=== PATIENT | female | born 2005 | race Two or more races ===

== ENCOUNTER 2023-08-03 23:21 | Emergency (ER) | payer SELFPAY ==
[2023-08-04 00:42] LABS: CORONAVIRUS COVID-19 NAA NEGATIVE (NEGATIVE); INFLUENZA A NAA NEGATIVE (NEGATIVE)
[2023-08-04] MEDS ORDERED: Ibuprofen Susp 100 MG/5 ML 5 ML UD Cup PO ONE (00:43)
[2023-08-04] MEDS ORDERED: Sodium Chloride 0.9% 10 ML Syringe FLUSH PRN (00:43)
[2023-08-04] MEDS ORDERED: Acetaminophen 325 MG/10.15 ML ML PO ONE (00:43)
[2023-08-04 01:16] LABS: BASOPHILS PERCENT AUTO 0.2 % (0.0-1.0); EOSINOPHILS PERCENT AUTO 0.1 % (0.0-6.0); HEMATOCRIT 37.2 % (37.0-47.0); HEMOGLOBIN 12.3 gm/dl (12.0-16.0); IMMATURE GRAN ABSOLUTE AUTO 0.12 K/mm3 (0.00-0.05); IMMATURE GRAN PERCENT AUTO 0.5 % (0.0-0.4); LYMPHOCYTES ABSOLUTE AUTO 1.8 K/mm3 (1.0-4.8); MEAN CORPUSCULAR HEMOGLOBIN 27.2 pg (28.0-32.0); MEAN CORPUSCULAR HGB CONC 33.1 g/dl (32.0-36.0); MEAN CORPUSCULAR VOLUME 82.1 fl (83.0-99.0); MEAN PLATELET VOLUME 9.6 fl (9.4-12.3); MONOCYTES ABSOLUTE AUTO 1.8 K/mm3 (0.0-0.8); MONOCYTES PERCENT AUTO 8.1 % (0.0-8.0); NEUTROPHILS ABSOLUTE AUTO 18.3 K/mm3 (1.8-7.7); NEUTROPHILS PERCENT AUTO 83.1 % (41.0-71.0); PLATELET COUNT,PLT 261 K/mm3 (150-400); RED BLOOD CELL COUNT 4.53 M/mm3 (4.10-5.30); WHITE BLOOD CELL COUNT,WBC 22.07 K/mm3 (3.9-11.3)
[2023-08-04 01:38] LABS: A/G RATIO 0.8 (1-2); ALBUMIN 3.6 g/dl (3.4-5.0); ANION GAP 16.5 (5-15); BILIRUBIN TOTAL 0.7 mg/dL (0.2-1.0); BUN/CREATININE RATIO 11.4 (14-18); CALCIUM 9.2 mg/dL (8.5-10.1); CREATININE 0.7 mg/dL (0.55-1.02); EST CRCL DRUG DOSING (CG) 124.67 mL/min; POTASSIUM,K 3.5 mEq/L (3.5-5.1); PROTEIN TOTAL,TP 7.9 g/dl (6.4-8.2)
[2023-08-04 01:41] LABS: SLIDE REVIEW ABNORMAL SMEAR
[2023-08-04] MEDS ORDERED: Clindamycin Phosphate in D5W 900 MG in Premix Bag 1 BAG IV ONE ×2 (02:02)
[2023-08-04] MEDS ORDERED: Dexamethasone 10 MG/ML SDV IVPUSH ONE (02:03)
[2023-08-04 02:08] LABS: C-REACTIVE PROTEIN 22.4 mg/dL (<1.0)
== END 2023-08-04 02:54 | disposition home or self-care (01) ==
LOC: JD.ED 23:21
DX: J36 Peritonsillar abscess (principal); Z20.822 Contact with and (suspected) exposure to COVID-19
CPT/HCPCS: 0240U; 36415; 80053; 85025; 86140; 86308; 87651; 96365; 96375; 99284; A9270; J1100; J3490

== ENCOUNTER 2023-08-15 16:45 | Emergency (ER) | payer OTHER ==
[2023-08-15 18:29] LABS: BASOPHILS ABSOLUTE AUTO 0.1 K/mm3 (0.0-0.2); BASOPHILS PERCENT AUTO 0.2 % (0.0-1.0); HEMATOCRIT 40.1 % (37.0-47.0); HEMOGLOBIN 13.1 gm/dl (12.0-16.0); IMMATURE GRAN ABSOLUTE AUTO 0.27 K/mm3 (0.00-0.05); IMMATURE GRAN PERCENT AUTO 0.8 % (0.0-0.4); LYMPHOCYTES PERCENT AUTO 3.2 % (24.0-44.0); MEAN CORPUSCULAR HEMOGLOBIN 27.2 pg (28.0-32.0); MEAN CORPUSCULAR HGB CONC 32.7 g/dl (32.0-36.0); MEAN CORPUSCULAR VOLUME 83.4 fl (83.0-99.0); MEAN PLATELET VOLUME 9.5 fl (9.4-12.3); MONOCYTES PERCENT AUTO 3.1 % (0.0-8.0); NEUTROPHILS ABSOLUTE AUTO 29.8 K/mm3 (1.8-7.7); NEUTROPHILS PERCENT AUTO 92.7 % (41.0-71.0); PLATELET COUNT,PLT 263 K/mm3 (150-400); RED BLOOD CELL COUNT 4.81 M/mm3 (4.10-5.30); WHITE BLOOD CELL COUNT,WBC 32.17 K/mm3 (3.9-11.3)
[2023-08-15 18:50] LABS: SLIDE REVIEW ABNORMAL SMEAR
[2023-08-15 18:53] LABS: A/G RATIO 0.8 (1-2); ALBUMIN 3.8 g/dl (3.4-5.0); ANION GAP 15.9 (5-15); BILIRUBIN TOTAL 0.4 mg/dL (0.2-1.0); CALCIUM 9.5 mg/dL (8.5-10.1); CREATININE 0.8 mg/dL (0.55-1.02); EST CRCL DRUG DOSING (CG) 109.08 mL/min; POTASSIUM,K 3.9 mEq/L (3.5-5.1); PROTEIN TOTAL,TP 8.6 g/dl (6.4-8.2)
[2023-08-15] MEDS ORDERED: Iopamidol 612 MG/ML 100 ML Bottle IVPUSH ONE (19:37)
[2023-08-15] MEDS ORDERED: Sodium Chloride 0.9% 10 ML Syringe FLUSH ONE (19:37)
[2023-08-15] MEDS ORDERED: Piperacillin/Tazobactam 4.5 GM in Sodium Chloride 0.9% 100 ML IV ONE (20:43)
[2023-08-15] MEDS ORDERED: Sodium Chloride 0.9% 2,000 ML IV ONE (20:45)
[2023-08-15] MEDS ORDERED: Dexamethasone 4 MG/ML 5 ML MDV IV ONE (20:47)
[2023-08-15 21:50] LABS: LACTIC ACID 0.6 mmol/L (0.4-2.0)
[2023-08-15] MEDS ORDERED: metroNIDAZOLE 500 MG Tab PO ONE (23:24)
== END 2023-08-15 23:52 | disposition home or self-care (01) ==
LOC: JD.ED 16:45
DX: J36 Peritonsillar abscess (principal)
CPT/HCPCS: 36415; 70491; 80053; 83605; 84703; 85025; 86308; 87040; 87651; 96365; 96366; 96375; 99283; A9270; J1100; J2543; J3490; J7030; Q9967; 99284

== ENCOUNTER 2023-10-14 00:11 | Emergency (ER) | payer OTHER ==
[2023-10-14] MEDS ORDERED: Lidocaine 2% Viscous Solution 15 ML UD PO PRN (00:49)
[2023-10-14] MEDS ORDERED: Acetaminophen 325 MG Tab PO ONE (00:49)
[2023-10-14] MEDS ORDERED: Ibuprofen 600 MG Tab PO ONE (00:49)
[2023-10-14] MEDS ORDERED: Sodium Chloride 0.9% 10 ML Syringe FLUSH PRN (00:51)
[2023-10-14] MEDS ORDERED: Iopamidol 612 MG/ML 100 ML Bottle IVPUSH ONE ×2 (01:00→01:46)
[2023-10-14] MEDS ORDERED: Sodium Chloride 0.9% 10 ML Syringe FLUSH ONE (01:00)
== END 2023-10-14 02:22 | disposition home or self-care (01) ==
LOC: JD.ED 00:11
DX: J03.90 Acute tonsillitis, unspecified (principal); B08.5 Enteroviral vesicular pharyngitis; Z98.818 Other dental procedure status
CPT/HCPCS: 70491; 81025; 87651; 99284; A9270; J3490; Q9967; 99283